=== PATIENT | female | born 1970 | race Native Hawaiian/Other Pacific Islander ===

== ENCOUNTER 2022-12-09 10:27 | Outpatient (CLI) | payer BC | END 2022-12-09 19:14 | disposition home or self-care (01) | LOC: US 10:27 | PROVIDERS: ATTEND Internal Medicine | DX: M79.605 Pain in left leg (principal); M79.604 Pain in right leg ==

== ENCOUNTER 2023-03-05 15:29 | Outpatient (CLI) | payer BC | END 2023-03-05 22:34 | disposition home or self-care (01) | LOC: CT 15:29 | PROVIDERS: ATTEND Internal Medicine | DX: R42 Dizziness and giddiness (principal); E78.2 Mixed hyperlipidemia ==